=== PATIENT | female | born 1965 | race Hispanic/Latino ===

== ENCOUNTER 2021-04-10 12:57 | Emergency (ER) | payer OTHER ==
[~2021-04-10] VITALS: Ht 154.9 cm; Wt 68.0 kg
[2021-04-10] MEDS ORDERED: TRAMADOL HCL 50 MG TAB PO ONE (15:30)
[2021-04-10] MEDS ORDERED: ACETAMINOPHEN-1 EAC3 PO (15:38)
== END 2021-04-10 16:00 | disposition home or self-care (01) ==
LOC: FSED 13:06
DX: S00.83XA Contusion of other part of head, initial encounter (principal); M54.2 Cervicalgia; M25.512 Pain in left shoulder; M54.5 Low back pain; V43.52XA Car driver injured in collision with other type car in traffic accident, initial encounter; Y92.488 Other paved roadways as the place of occurrence of the external cause
CPT/HCPCS: 70450; 71046; 72100; 72126; 99283